=== PATIENT | female | born 1990 | race African-American/Black ===

== ENCOUNTER 2016-12-02 19:32 | Emergency (ER) | payer OTHER ==
[~2016-12-02] VITALS: Ht 162.5 cm; Wt 45.4 kg
[~2016-12-02 19:32] MED LIST: MOTRIN800 MG PO; NITROFURANTOIN100 MG PO; PRENATAL1 TA7 PO
[2016-12-02 20:19] LABS: BASO % 0.3 % (0.0-1.0); EOS % 0.2 % (1.0-4.0); HEMATOCRIT 44.1 % (37.0-47.0); HEMOGLOBIN 14.7 g/dl (12.0-16.0); LYMPH # 0.7 10*3/uL (1.3-4.4); LYMPH % 10.4 % (27.0-41.0); MEAN CORPUSCULAR HGB 28.7 pg (27.0-31.0); MEAN CORPUSCULAR HGB CONC 33.3 g/dl (33.0-37.0); MEAN PLATELET VOLUME 9.8 fl (9.6-12.3); MONO # 0.3 10*3/uL (0.1-1.0); MONO % 5.2 % (3.0-9.0); NEUT # 5.5 10*3/uL (2.3-7.9); NEUT % 83.6 % (47.0-73.0); PLATELET COUNT AUTOMATED 278 10*3/uL (130-400); RED BLOOD COUNT 5.13 10*6/uL (4.10-5.10); RED CELL DISTRI WIDTH 13.7 % (0-14.5); WHITE BLOOD COUNT 6.5 10*3/uL (4.8-10.8)
[2016-12-02 20:34] LABS: ALKALINE PHOSPHATASE 79 U/L (45-117); BILIRUBIN, TOTAL 0.5 mg/dl (0.2-1.0); BUN 17 mg/dl (7-24); CARBON DIOXIDE 25 mmol/L (21-32); CHLORIDE 102 mmol/L (98-107); EST GLOM FILT AFRICAN AMERICAN > 60 ml/min; GLUCOSE 82 mg/dL (65-99); MAGNESIUM 1.9 mg/dL (1.5-2.1); POTASSIUM 3.5 mmol/L (3.5-5.1); SGOT/AST 44 IU/L (3-35); SGPT/ALT 36 U/L (12-78); SODIUM 137 mmol/L (136-145); TOTAL PROTEIN 8.2 gm/dL (6.4-8.2)
[2016-12-02 20:37] LABS: B-hCG (QUALITATIVE) NEGATIVE (NEGATIVE)
[2016-12-02 21:04] LABS: BILIRUBIN 1+ (NEGATIVE); BLOOD 2+ (NEGATIVE); CLARITY SL CLOUDY (CLEAR); COLOR YELLOW (YELLOW); GLUCOSE NEGATIVE (NEGATIVE); KETONE 2+ (NEGATIVE); LEUKO ESTERASE NEGATIVE (NEGATIVE); NITRITE NEGATIVE (NEGATIVE); PROTEIN TRACE (NEGATIVE); SPECIFIC GRAVITY 1.025 (1.005-1.030); UROBILINOGEN 0.2 E.U./dl (0.2-1.0)
[2016-12-02 21:10] LABS: BACTERIA 4+; EPITHELIAL CELLS 15-20; URINE REFLEX COMMENT YES (NO)
[2016-12-02] MEDS ORDERED: ZOFRAN ODT4 MG SL (21:51)
== END 2016-12-02 21:31 | disposition home or self-care (01) ==
LOC: ED 19:32
PROVIDERS: Family Medicine Sports Medicine
DX: K52.9 Noninfective gastroenteritis and colitis, unspecified (principal); R11.2 Nausea with vomiting, unspecified

== ENCOUNTER 2017-04-10 14:20 | Emergency (ER) | payer OTHER ==
[~2017-04-10] VITALS: Ht 162.5 cm; Wt 48.5 kg
[~2017-04-10 14:20] MED LIST changes: +ZOFRAN ODT4 MG SL
[2017-04-10] MEDS ORDERED: CEPHALEXIN500 M1 PO (14:35)
[2017-04-10] MEDS ORDERED: SEPTDS PO (14:35)
[2017-04-11] MEDS ORDERED: TYLENOL WITH C1 EACH PO (18:42)
== END 2017-04-10 14:56 | disposition home or self-care (01) ==
LOC: ED 14:20
DX: L02.211 Cutaneous abscess of abdominal wall (principal); F17.200 Nicotine dependence, unspecified, uncomplicated

== ENCOUNTER 2017-04-11 18:12 | Emergency (ER) | payer OTHER ==
[~2017-04-11] VITALS: Ht 162.5 cm; Wt 48.5 kg
[~2017-04-11 18:12] MED LIST changes: +CEPHALEXIN500 M1 PO; +SEPTDS PO
[2017-04-11] MEDS ORDERED: TYLENOL WITH C1 EACH PO (18:42)
== END 2017-04-11 18:46 | disposition home or self-care (01) ==
LOC: ED 18:12
DX: L02.211 Cutaneous abscess of abdominal wall (principal); F17.200 Nicotine dependence, unspecified, uncomplicated

== ENCOUNTER → 2017-10-10 | Outpatient (CLI) | payer OTHER ==
[~2017-10-10] MED LIST changes: +TYLENOL WITH C1 EACH PO
== END | disposition home or self-care (01) ==
LOC: LAB 18:41
DX: Z3A.00 Weeks of gestation of pregnancy not specified (principal)

== ENCOUNTER 2017-10-15 07:54 | Emergency (ER) | payer OTHER ==
[~2017-10-15] VITALS: Wt 52.2 kg
[2017-10-15 08:24] LABS: BASO % 0.3 % (0.0-1.0); EOS % 0.1 % (1.0-4.0); HEMATOCRIT 41.2 % (37.0-47.0); HEMOGLOBIN 13.4 g/dl (12.0-16.0); LYMPH # 1.6 10*3/uL (1.3-4.4); LYMPH % 11.1 % (27.0-41.0); MEAN CELL VOLUME 90.9 fl (81.0-99.0); MEAN CORPUSCULAR HGB 29.6 pg (27.0-31.0); MEAN CORPUSCULAR HGB CONC 32.5 g/dl (33.0-37.0); MEAN PLATELET VOLUME 9.5 fl (9.6-12.3); MONO # 1.2 10*3/uL (0.1-1.0); NEUT # 11.8 10*3/uL (2.3-7.9); NEUT % 80.2 % (47.0-73.0); PLATELET COUNT AUTOMATED 316 10*3/uL (130-400); RED BLOOD COUNT 4.53 10*6/uL (4.10-5.10); RED CELL DISTRI WIDTH 13.7 % (0-14.5); WHITE BLOOD COUNT 14.7 10*3/uL (4.8-10.8)
[2017-10-15 08:33] LABS: ACT PARTIAL THROMBO TIME 22.8 SECONDS (20.8-31.5)
[2017-10-15 08:37] LABS: BUN 12 mg/dl (7-24); CHLORIDE 107 mmol/L (98-107); CREATININE 0.83 mg/dL (0.55-1.02); POTASSIUM 3.6 mmol/L (3.5-5.1); SODIUM 140 mmol/L (136-145)
[2017-10-15 08:42] LABS: BILIRUBIN NEGATIVE (NEGATIVE); BLOOD 3+ (NEGATIVE); CLARITY CLEAR (CLEAR); COLOR YELLOW (YELLOW); GLUCOSE NEGATIVE (NEGATIVE); KETONE NEGATIVE (NEGATIVE); LEUKO ESTERASE NEGATIVE (NEGATIVE); NITRITE NEGATIVE (NEGATIVE); PH 7.5 (5.0-9.0); UROBILINOGEN 0.2 E.U./dl (0.2-1.0)
[2017-10-15 08:49] LABS: BACTERIA TRACE
[2017-10-17 20:07] LABS: GONOCOCCUS BY NAA Negative (Negative)
== END 2017-10-15 11:12 | disposition home or self-care (01) ==
LOC: ED 07:54
PROVIDERS: Emergency Medicine
DX: O46.91 Antepartum hemorrhage, unspecified, first trimester (principal); Z3A.01 Less than 8 weeks gestation of pregnancy

== ENCOUNTER 2017-10-29 11:56 | Emergency (ER) | payer OTHER ==
[~2017-10-29] VITALS: Ht 162.5 cm; Wt 52.2 kg
== END 2017-10-29 13:45 | disposition home or self-care (01) ==
LOC: ED 11:56
DX: S90.32XA Contusion of left foot, initial encounter (principal); Z79.899 Other long term (current) drug therapy; W10.8XXA Fall (on) (from) other stairs and steps, initial encounter; Y93.89 Activity, other specified; Y92.89 Other specified places as the place of occurrence of the external cause; Y99.9 Unspecified external cause status

== ENCOUNTER 2017-11-09 10:54 | Emergency (ER) | payer OTHER ==
[~2017-11-09] VITALS: Wt 52.2 kg
[2017-11-09 12:04] LABS: BASO % 0.5 % (0.0-1.0); EOS % 0.3 % (1.0-4.0); HEMATOCRIT 41.4 % (37.0-47.0); HEMOGLOBIN 13.4 g/dl (12.0-16.0); LYMPH # 1.2 10*3/uL (1.3-4.4); LYMPH % 18.1 % (27.0-41.0); MEAN CELL VOLUME 92.4 fl (81.0-99.0); MEAN CORPUSCULAR HGB 29.9 pg (27.0-31.0); MEAN CORPUSCULAR HGB CONC 32.4 g/dl (33.0-37.0); MEAN PLATELET VOLUME 9.6 fl (9.6-12.3); MONO # 0.3 10*3/uL (0.1-1.0); MONO % 5.2 % (3.0-9.0); NEUT # 4.9 10*3/uL (2.3-7.9); NEUT % 75.6 % (47.0-73.0); PLATELET COUNT AUTOMATED 321 10*3/uL (130-400); RED BLOOD COUNT 4.48 10*6/uL (4.10-5.10); RED CELL DISTRI WIDTH 13.2 % (0-14.5); WHITE BLOOD COUNT 6.5 10*3/uL (4.8-10.8)
[2017-11-09 12:23] LABS: ALBUMIN 3.8 gm/dl (3.1-4.5); ALKALINE PHOSPHATASE 76 U/L (45-117); BUN 16 mg/dl (7-24); CHLORIDE 107 mmol/L (98-107); CREATININE 0.82 mg/dL (0.55-1.02); LIPASE 131 U/L (73-393); POTASSIUM 3.7 mmol/L (3.5-5.1); SGOT/AST 17 IU/L (3-35); SGPT/ALT 15 U/L (12-78); SODIUM 139 mmol/L (136-145); TOTAL PROTEIN 7.5 gm/dL (6.4-8.2)
[2017-11-09 13:03] LABS: BILIRUBIN NEGATIVE (NEGATIVE); BLOOD 3+ (NEGATIVE); CLARITY CLOUDY (CLEAR); COLOR RED (YELLOW); GLUCOSE NEGATIVE (NEGATIVE); KETONE NEGATIVE (NEGATIVE); LEUKO ESTERASE NEGATIVE (NEGATIVE); NITRITE NEGATIVE (NEGATIVE); SPECIFIC GRAVITY 1.015 (1.005-1.030); UROBILINOGEN 0.2 E.U./dl (0.2-1.0)
[2017-11-09 13:13] LABS: RBC TNTC rbc/hpf (0-2); WBC 0-2 wbc/hpf (0-5)
== END 2017-11-09 13:53 | disposition home or self-care (01) ==
LOC: ED 10:54
PROVIDERS: Physician Assistant
DX: O03.9 Complete or unspecified spontaneous abortion without complication (principal); Z3A.08 8 weeks gestation of pregnancy

== ENCOUNTER 2017-11-12 09:49 | Emergency (ER) | payer OTHER ==
[~2017-11-12] VITALS: Ht 162.5 cm; Wt 50.8 kg
[2017-11-12] MEDS ORDERED: MOTRIN 600 MG E4 TAB PO (10:57)
== END 2017-11-12 11:04 | disposition home or self-care (01) ==
LOC: ED 09:49
DX: S40.022A Contusion of left upper arm, initial encounter (principal); R51 Headache; Y04.0XXA Assault by unarmed brawl or fight, initial encounter; Y93.89 Activity, other specified; Y92.009 Unspecified place in unspecified non-institutional (private) residence as the place of occurrence of the external cause; Y99.8 Other external cause status

== ENCOUNTER 2017-12-06 19:26 | Emergency (ER) | payer SELFPAY ==
[~2017-12-06] VITALS: Ht 162.5 cm; Wt 49.9 kg
[~2017-12-06 19:26] MED LIST changes: +MOTRIN 600 MG E4 TAB PO
[2017-12-06 20:12] LABS: BILIRUBIN NEGATIVE (NEGATIVE); BLOOD 3+ (NEGATIVE); CLARITY SL CLOUDY (CLEAR); COLOR YELLOW (YELLOW); GLUCOSE NEGATIVE (NEGATIVE); KETONE NEGATIVE (NEGATIVE); LEUKO ESTERASE 3+ (NEGATIVE); NITRITE POSITIVE (NEGATIVE); SPECIFIC GRAVITY 1.025 (1.005-1.030)
[2017-12-06 20:24] LABS: BACTERIA 2+; RBC TNTC rbc/hpf (0-2); WBC TNTC wbc/hpf (0-5)
[2017-12-06] MEDS ORDERED: PYRIDIUM200 M1 PO (20:30)
[2017-12-06] MEDS ORDERED: MACROBID100 M1 PO (20:30)
== END 2017-12-06 20:48 | disposition home or self-care (01) ==
LOC: ED 19:26
PROVIDERS: Nurse Practitioner Family
DX: N39.0 Urinary tract infection, site not specified (principal)

== ENCOUNTER 2018-05-11 13:18 | Emergency (ER) | payer SELFPAY ==
[~2018-05-11] VITALS: Ht 165.1 cm; Wt 49.9 kg
[~2018-05-11 13:18] MED LIST changes: +MACROBID100 M1 PO; +PYRIDIUM200 M1 PO
[2018-05-11] MEDS ORDERED: CYCLOBENZAPRINE10 MG PO (15:49)
[2018-05-11] MEDS ORDERED: IBU800 MG PO (15:49)
== END 2018-05-11 15:59 | disposition home or self-care (01) ==
LOC: ED 13:18
DX: R51 Headache (principal); M62.838 Other muscle spasm; R22.1 Localized swelling, mass and lump, neck; R11.0 Nausea

== ENCOUNTER 2018-09-16 12:15 | Emergency (ER) | payer OTHER ==
[~2018-09-16] VITALS: Ht 162.5 cm; Wt 49.9 kg
[~2018-09-16 12:15] MED LIST changes: +CYCLOBENZAPRINE10 MG PO; +IBU800 MG PO
[2018-09-16] MEDS ORDERED: NAPROSYN500 MG PO (14:25)
[2018-09-16] MEDS ORDERED: CYCLOBENZAPRINE10 MG PO (14:25)
== END 2018-09-16 14:28 | disposition home or self-care (01) ==
LOC: ED 12:15
DX: G44.209 Tension-type headache, unspecified, not intractable (principal); M54.2 Cervicalgia; R11.0 Nausea; F17.200 Nicotine dependence, unspecified, uncomplicated

== ENCOUNTER 2019-05-18 14:08 | Emergency (ER) | payer OTHER ==
[~2019-05-18] VITALS: Ht 165.1 cm; Wt 54.4 kg
[~2019-05-18 14:08] MED LIST changes: +NAPROSYN500 MG PO
[2019-05-18 14:55] LABS: BILIRUBIN NEGATIVE (NEGATIVE); BLOOD 3+ (NEGATIVE); CLARITY CLOUDY (CLEAR); COLOR RED (YELLOW); GLUCOSE NEGATIVE (NEGATIVE); KETONE NEGATIVE (NEGATIVE); LEUKO ESTERASE 1+ (NEGATIVE); NITRITE NEGATIVE (NEGATIVE); PH 7.5 (5.0-9.0); UROBILINOGEN 0.2 E.U./dl (0.2-1.0)
[2019-05-18 14:57] LABS: BASO % 0.4 % (0.0-1.0); EOS # 0.1 10*3/uL (0.0-0.4); EOS % 0.9 % (1.0-4.0); HEMOGLOBIN 12.3 g/dl (12.0-16.0); LYMPH # 1.5 10*3/uL (1.3-4.4); LYMPH % 22.6 % (27.0-41.0); MEAN CELL VOLUME 90.7 fl (81.0-99.0); MEAN CORPUSCULAR HGB 28.6 pg (27.0-31.0); MEAN CORPUSCULAR HGB CONC 31.5 g/dl (33.0-37.0); MEAN PLATELET VOLUME 9.6 fl (9.6-12.3); MONO # 0.6 10*3/uL (0.1-1.0); MONO % 8.3 % (3.0-9.0); NEUT # 4.5 10*3/uL (2.3-7.9); NEUT % 67.4 % (47.0-73.0); PLATELET COUNT AUTOMATED 312 10*3/uL (130-400); RED CELL DISTRI WIDTH 14.5 % (0-14.5); WHITE BLOOD COUNT 6.7 10*3/uL (4.8-10.8)
[2019-05-18 14:58] LABS: RBC TNTC rbc/hpf (0-2)
[2019-05-18 15:13] LABS: ALBUMIN 3.8 gm/dl (3.1-4.5); ALKALINE PHOSPHATASE 63 U/L (45-117); BUN 8 mg/dl (7-24); CHLORIDE 110 mmol/L (98-107); CREATININE 0.94 mg/dL (0.55-1.02); POTASSIUM 4.1 mmol/L (3.5-5.1); SGOT/AST 17 IU/L (3-35); SGPT/ALT 21 U/L (12-78); SODIUM 141 mmol/L (136-145); TOTAL PROTEIN 7.2 gm/dL (6.4-8.2)
[2019-05-18 15:15] LABS: BETA-HCG, QUANT < 1.0 mIU/mL (1-3)
[2019-05-18 15:17] LABS: ACT PARTIAL THROMBO TIME 26.2 SECONDS (20.0-32.1)
== END 2019-05-18 16:00 | disposition home or self-care (01) ==
LOC: ED 14:08
PROVIDERS: Nurse Practitioner Family
DX: N94.6 Dysmenorrhea, unspecified (principal); Z79.899 Other long term (current) drug therapy

== ENCOUNTER 2020-01-07 01:06 | Emergency (ER) | payer OTHER ==
[~2020-01-07] VITALS: Ht 165.1 cm; Wt 54.4 kg
[2020-01-07] MEDS ORDERED: IBU800 MG PO (01:43)
[2020-01-07] MEDS ORDERED: CORTISPORIN SUS10 ML OT (01:43)
== END 2020-01-07 02:00 | disposition home or self-care (01) ==
LOC: ED 01:06
DX: H60.92 Unspecified otitis externa, left ear (principal)

== ENCOUNTER → 2020-10-10 | Outpatient (CLI) | payer OTHER ==
[~2020-10-10] MED LIST changes: +CORTISPORIN SUS10 ML OT
== END | disposition home or self-care (01) ==
LOC: RAD 16:31
PROVIDERS: ATTEND Chiropractor
DX: M54.2 Cervicalgia (principal)

== ENCOUNTER 2021-05-12 12:36 | Emergency (ER) | payer OTHER ==
[~2021-05-12] VITALS: Wt 50.8 kg
== END 2021-05-12 16:10 | disposition home or self-care (01) ==
LOC: ED 12:36
DX: M54.12 Radiculopathy, cervical region (principal)

== ENCOUNTER 2022-03-08 19:43 | Emergency (ER) | payer OTHER | END 2022-03-08 23:30 | disposition home or self-care (01) | LOC: ED 19:43 | DX: S93.401A Sprain of unspecified ligament of right ankle, initial encounter (principal); X50.1XXA Overexertion from prolonged static or awkward postures, initial encounter; Y93.01 Activity, walking, marching and hiking; Y92.89 Other specified places as the place of occurrence of the external cause; Y99.9 Unspecified external cause status ==

== ENCOUNTER 2022-05-21 11:22 | Emergency (ER) | payer OTHER ==
[~2022-05-21] VITALS: Wt 53.5 kg
== END 2022-05-21 13:10 | disposition home or self-care (01) ==
LOC: ED 11:22
DX: G89.29 Other chronic pain (principal); M54.2 Cervicalgia